=== PATIENT | male | born 1960 | race Caucasian/White ===

== ENCOUNTER 2017-03-11 16:20 | Inpatient (IN) ==
[2017-03-11 17:41] LABS: Basophils # 0.1 10*3/uL (0.0-0.2); Basophils % 1.1 % (0.0-0.8); Eosinophils # 0.1 10*3/uL (0.0-0.87); Eosinophils % 2.2 % (0.00-10.9); Hematocrit 41.2 VOL% (42.0-52.0); Hemoglobin 14.5 GM/DL (14.0-18.0); Immature Granulocytes % 0.2 %; Immature Granulocytes Absolute 0.01 #; Lymphocytes # 1.7 10*3/uL (1.4-4.0); Lymphocytes % 36.5 % (21.2-54.2); Mean Corpuscular HGB Conc 35.2 GM/DL (32-36); Mean Corpuscular Hemoglobin 31 PG (27-34); Mean Corpuscular Volume 86.7 FL (87-102); Monocytes # 0.4 10*3/uL (0.11-0.8); Monocytes % 8.6 % (1.7-12.7); Neutrophils # 2.3 10*3/uL (1.4-7.4); Neutrophils % 51.4 % (38.7-73.9); Platelet Count 189 T/CUMM (130-400); Red Blood Count 4.75 MC/CUMM (3.8-5.5); Red Cell Distribution Width 12.6 % (9.3-17.3); White Blood Count 4.6 T/CUMM (4-12)
--- NOTE | 2017-03-11 17:42 | XRay Report ---
XR chest 1V portable Indication: SOB Comparison: Chest x-ray March 13, 2014 Technique: Single frontal view of the chest. Findings: The cardiomediastinal silhouette is stable in configuration. No focal consolidation, pleural effusion, or pneumothorax. Visualized osseous and surrounding soft tissue structures appear grossly unchanged. IMPRESSION: Stable chest x-ray without acute cardiopulmonary process demonstrated. PROCEDURE INTERPRETED AT [facility] DEPARTMENT OF RADIOLOGY Final Report Signed by: Dr Shahzad Mead
[2017-03-11 17:47] LABS: Apearance,Urine CLEAR (Clear); Bilirubin,Urine Negative (Negative); Blood, Urine Negative (Negative); Glucose,Urine (UA) Negative (Negative); Ketones,Urine Negative (Negative); Mucus,Urine Occasional /LPF (Occasional); Nitrite,Urine Negative (Negative); Protein,Urine Negative; RBC,Urine <1 /HPF (0-4); Urine Color Yellow (Yellow); Urine Specific Gravity 1.024 (1.001-1.035)
[2017-03-11 18:11] LABS: Bilirubin,Total 0.4 MG/DL (0.2-1.0); Calcium 8.9 MG/DL (8.5-10.1); Osmolality,Calculated 283.1 MOS/KG (273-304); Potassium 3.7 MMOL/L (3.5-5.1); Thyroid Stimulating Hormone 3.42 uIU/ml (0.358-3.74); Total Protein 7.6 G/DL (6.4-8.3)
[2017-03-11] MEDS ORDERED: MAGNESIUM SULF RIDER 2 GM in PREMIX 1 EACH IV PRN ×2 (18:16→20:19)
[2017-03-11] MEDS ORDERED: MAGNESIUM SULF RIDER 4 GM in PREMIX 1 EACH IV PRN ×2 (18:16→20:19)
[2017-03-11] MEDS ORDERED: INFLUENZA VIRUS VACCINE 0.5 ML SYRINGE IM ONE (20:03)
[2017-03-11] MEDS ORDERED: PNEUMOCOCCAL VACCINE (23 VALENT) 0.5 ML VIAL IM ONE (20:07)
[2017-03-11] MEDS ORDERED: ZALEPLON 5 MG CAPSULE PO PRN (20:19)
[2017-03-11] MEDS ORDERED: ONDANSETRON 4 MG/2 ML VIAL IV PRN (20:19)
[2017-03-11] MEDS ORDERED: DOCUSATE SODIUM 100 MG CAPSULE PO PRN (20:19)
[2017-03-11] MEDS ORDERED: POTASSIUM CHLORIDE RIDER 10 MEQ in PREMIX 1 EACH IV PRN (20:19)
[2017-03-11] MEDS ORDERED: ACETAMINOPHEN 325 MG TABLET PO PRN (20:19)
[2017-03-11] MEDS ORDERED: GABAPENTIN 300 MG CAPSULE PO SCH (21:00)
[2017-03-11] MEDS: traZODone 50 MG TABLET PO SCH (21:50)
[2017-03-11] MEDS: LUBIPROSTONE 24 MCG CAPSULE PO SCH (21:50)
[2017-03-11] MEDS: GABAPENTIN 100 MG CAPSULE PO SCH (21:50)
[2017-03-11] MEDS: ENOXAPARIN 40 MG/0.4 ML SYRINGE SUBCUT SCH (21:50)
[2017-03-11] MEDS: POLYETHYLENE GLYCOL POWDER 17 GM PACK PO SCH (21:51)
[2017-03-12] MEDS: LEVOTHYROXINE 50 MCG TABLET PO SCH (07:03)
--- NOTE | 2017-03-12 07:22 | Cardiology History & Physical ---
Assessment and Plan - Time spent with patient Time spent with patient: Greater than 30 minutes (1) Symptomatic bradycardia Status: Acute Assessment and plan: SEE PLAN OF CARE LISTED BELOW Current Visit: Yes (2) Unintentional weight loss Status: Acute Assessment and plan: SEE PLAN OF CARE LISTED BELOW Current Visit: Yes (3) Nausea & vomiting Status: Acute Assessment and plan: SEE PLAN OF CARE LISTED BELOW Current Visit: Yes (4) Fatigue Status: Acute Assessment and plan: SEE PLAN OF CARE LISTED BELOW Current Visit: Yes History of Present Illness Chief complaint: symptomatic bradycardia History of present illness: 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 English, 56WM has no significant risk factors for coronary artery disease. Presented to the ED March 11, 2017 with presyncope, nausea and vomiting. Patient was found to be bradycardic heart rate in the 40s. Patient actually had an appointment to see Dr. Montejo March 28, 2017 for bradycardia. He is taking malachi blocking agents. Over the past several months, patient has had significant fatigue, lightheadedness and dizziness, several episodes of near syncope. This past weekend, patient began to have these near syncopal episodes as well, experiencing nausea and significant vomiting. This was transient but would continue to occur several days in a row. He has had a significant amount of weight loss over the past several months as well. Denies chest pain, heaviness, tightness. Denies shortness of breath, palpitations. Patient is normally very active but has been on able to perform his activities lately due to significant fatigue. Patient reports he had a heart catheterization approximately [address] Cherry at [facility] and received favorable results. I cannot locate this heart catheterization report. He has not followed up in cardiology clinic at [facility]. Per Dr. Montejo, will consult gastroenterology to evaluate the patient for possible scopes as there are some conditions which can create a vasovagal episode. He will first need to have his GI system evaluated. If there is no obvious source to contribute to the increased vagal tone, patient may require cardiac pacemaker. Echocardiogram this morning. I will keep patient NPO. Adding Amylase, Lipase and LFTs, carotid ultrasound. IMPRESSION/PLAN: 1. SYMPTOMATIC BRADYCARDIA - see discussion listed above. Will continue to monitor his telemetry. I see no obvious high-grade block rather sinus bradycardia. However, he is symptomatic and will most likely ultimately require pacemaker but his GI system must be evaluated first. 2. FATIGUE - may be related to his bradycardia. Further workup in progress 3. UNINTENTIONAL WEIGHT LOSS - GI to evaluate. Previously seen by Dr. Mackey with colonoscopy several years ago. Received favorable results at that time. I have requested records 4. NAUSEA AND VOMITING - GI to evaluate. Adding LFTs, amylase and lipase Home Medications Medication Instructions Recorded Confirmed Type Docusate Sodium [Colace] 100 mg PO QPM 03/11/17 03/11/17 History Gabapentin 200 mg PO BID 03/11/17 03/11/17 History HYDROcodone/ACETAMIN 7.5-325 1 tablet PO TID PRN 03/11/17 03/11/17 History [[place] 7.5-325] Levothyroxine Tab [Synthroid Tab] 50 mcg PO DAILY@0700 03/11/17 03/11/17 History Lubiprostone [Amitiza] 24 mcg PO BEDTIME 03/11/17 03/11/17 History Methocarbamol Tab [Robaxin Tab] 500 mg PO DAILY 03/11/17 03/11/17 History Montelukast Tab [Singulair Tab] 10 mg PO DAILY 03/11/17 03/11/17 History Polyethylene Glycol Powder 17 gm PO BEDTIME 03/11/17 03/11/17 History [Miralax] traZODone [Desyrel] 50 mg PO BEDTIME 03/11/17 03/11/17 History Allergies Allergy/AdvReac Type Severity Reaction Status Date / Time Penicillins Allergy Vomiting Verified 03/11/17 16:47 Review of systems: REVIEW OF SYSTEMS: - Constitutional Constitutional: Present: Fatigue, near syncope, anorexia. Absent: night sweats - EENT Eyes: Absent: blurry vision, loss of vision, diplopia Ears: Absent: decreased hearing, ear pain, ear discharge - Cardiovascular Cardiovascular: Denies: chest pain with exertion, dyspnea on exertion, edema, palpitations. Absent: chest pain with deep breath, claudication - Respiratory Respiratory: Denies: HERRERA, cough. Absent: wheezing, hemoptysis, change in phlegm color - Gastrointestinal Gastrointestinal: Denies constipation. Absent: abdominal pain, hematemesis, hematochezia, melena, change in bowel habits. Acknowledges nausea with significant vomiting recently, frequently. Early satiety - Genitourinary Genitourinary: Absent: difficulty urinating, dysuria, urinary hesitancy, flank pain - Musculoskeletal Musculoskeletal: Present: back pain Absent: joint swelling, muscle cramps, muscle weakness - Neurological Neurological: Present: normal gait without frequent falls. Dizziness present. Absent: hemiparesis - Psychiatric Psychiatric: Absent: anxiety, depression, difficulty concentrating - Endocrine Endocrine: Absent: cold intolerance, heat intolerance, polyuria, polyphagia, polydipsia - Hematologic/Lymphatic Hematologic/Lymphatic: Present: easy bruising. Absent: easy bleeding -Integumentary Integumentary: Absent: lesions, rashes, skin breakdown Medical,Surgical,& Family Hx - Medical History Cardio: No history of: Cardiac Dysrhythmia, CAD, Hypertension, [place] Endocrine: No history of: Diabetes Mellitus (NIDDM) Gastrointestinal: History of: Hemorrhoids (surgery) Musculoskeletal: History of: Back/Neck Problems (surgery) Reproductive: Reports: Reproductive Problems (testical cancer and removal) - Surgical History Cardiac Surgeries: Sugical HX of: Cardiac Catheterization (negative) - Social History Smoking Status: Never smoker Have you smoked in the last 12 months: No Frequency of Alcohol Use: None Type of Drug Use: None Marital Status: Lives With:: Spouse Functional capacity: independent ambulation Cardiology Physical Exam - Constitutional Vitals: Vital Signs Temp Pulse Resp BP Pulse Ox 98.0 F 53 L 16 109/59 99 03/12/17 04:00 03/12/17 04:00 03/12/17 05:58 03/12/17 04:00 03/12/17 04:00 Intake and Output 03/11/17 03/11/17 03/12/17 15:59 23:59 07:59 Intake Total 200 / 200 Output Total 400 / 400 Balance 200 / 200 -400 / -400 Intake: Oral 200 / 200 Output: Urine 400 / 400 Other: Voiding Method Toilet Urinal # Voids 1 Weight 72.121 kg 74.899 kg Patient Weight 03/12/17 23:59 Weight 74.899 kg Exam: General: [Appears well with no apparent distress.] [Pleasant and cooperative. ] [Appears comfortable.] HEENT: [PERRL, normocephalic, atraumatic. Mucous membranes moist. No jaundice noted. Conjunctiva moist and clear, sclerae anicteric] Neck: No JVD/HJR, no thyromegaly or lymphadenopathy noted. Soft carotid bruit bilaterally appreciated Cardiac: [Regular rate and rhythm.] [No murmur rub or gallop.] Lungs: [Clear to auscultation without accessory muscle use to assist the respiratory pattern.] Not requiring oxygen Abdomen: Soft, bowel sounds normoactive. Nontender and nondistended. No abdominal bruit or thrill noted. No masses noted. Musculoskeletal: No fluid collection. Decreased range of motion is noted. Extremities: No clubbing, cyanosis noted. [ No edema noted.] Upper extremity pulses 2+. Lower extremity pulses 2+. Capillary refill less than 3 seconds. Skin: No unusual lesions or rashes. No skin breakdown appreciated. Neuro: Awake, alert and oriented 3. Moves all extremities well without hemiparesis or paralysis. No essential tremor is appreciated. Result/EKG - Labs CBC & BMP: 03/11/17 17:30 03/11/17 17:30 Lab Results: I have reviewed the past 24 hour labs Labs: Laboratory Results - last 24 hr 03/11/17 03/11/17 03/11/17 17:24 17:30 17:30 WBC 4.6 RBC 4.75 Hgb 14.5 Hct 41.2 L MCV 86.7 L MCH 31 MCHC 35.2 RDW 12.6 Plt Count 189 MPV 10.0 Neut % (Auto) 51.4 Lymph % (Auto) 36.5 [place] % (Auto) 8.6 Eos % (Auto) 2.2 Baso % (Auto) 1.1 H Neut # (Auto) 2.3 Lymph # (Auto) 1.7 [place] # (Auto) 0.4 Eos # (Auto) 0.1 Baso # (Auto) 0.1 Immature Gran % 0.2 Nucleated RBC % 0.0 Immature Gran # 0.01 Nucleated RBCs # 0.00 Immature Plt Fraction 0.0 Sodium Potassium Chloride Carbon Dioxide Anion Gap BUN Creatinine GFR Calculation BUN/Creatinine Ratio Glucose Calculated Osmolality Calcium Total Bilirubin AST ALT Alkaline Phosphatase Total Protein Albumin Globulin Albumin/Globulin Ratio Free T4 0.82 TSH 3rd Generation Urine Color Yellow Urine Appearance Clear Urine pH 5.0 Ur Specific [place] 1.024 Urine Protein Negative Urine Glucose (UA) Negative Urine Ketones Negative Urine Blood Negative Urine Nitrate Negative Urine Bilirubin Negative Urine Urobilinogen 4.0 H Urine Leukocytes Negative Urine RBC <1 Urine Mucus Occasional Ur Culture Indicated? Not indicated 03/11/17 17:30 WBC RBC Hgb Hct MCV MCH MCHC RDW Plt Count MPV Neut % (Auto) Lymph % (Auto) [place] % (Auto) Eos % (Auto) Baso % (Auto) Neut # (Auto) Lymph # (Auto) [place] # (Auto) Eos # (Auto) Baso # (Auto) Immature Gran % Nucleated RBC % Immature Gran # Nucleated RBCs # Immature Plt Fraction Sodium 142 Potassium 3.7 Chloride 108 H Carbon Dioxide 26 Anion Gap 11.7 BUN 18 Creatinine 1.00 GFR Calculation 87 BUN/Creatinine Ratio 18.00 Glucose 83 Calculated Osmolality 283.1 Calcium 8.9 Total Bilirubin 0.40 AST 15 ALT 17 Alkaline Phosphatase 86 Total Protein 7.6 Albumin 4.0 Globulin 3.6 H Albumin/Globulin Ratio 1.1 Free T4 TSH 3rd Generation 3.420 Urine Color Urine Appearance Urine pH Ur Specific [place] Urine Protein Urine Glucose (UA) Urine Ketones Urine Blood Urine Nitrate Urine Bilirubin Urine Urobilinogen Urine Leukocytes Urine RBC Urine Mucus Ur Culture Indicated? - Diagnostic Findings Procedure: Chest x-ray: report reviewed by me - EKG EKG results: interpreted by me EKG shows: bradycardia
--- NOTE | 2017-03-12 07:27 | Order Completion Report ---
See report scanned to EMR
[2017-03-12] MEDS: GABAPENTIN 100 MG CAPSULE PO SCH ×2 (08:52→21:01)
[2017-03-12] MEDS: MONTELUKAST 10 MG TABLET PO SCH (08:52)
[2017-03-12] MEDS: METHOCARBAMOL 500 MG TABLET PO SCH (08:52)
[2017-03-12] MEDS ORDERED: PANTOPRAZOLE 40 MG TABLET PO SCH (09:00)
[2017-03-12 11:57] LABS: Albumin 3.8 G/DL (3.4-5.0); Bilirubin,Direct 0.14 MG/DL (0.0-0.20); Bilirubin,Indirect 0.4 MG/DL (0.0-1.0); Bilirubin,Total 0.5 MG/DL (0.2-1.0); Total Protein 6.9 G/DL (6.4-8.3)
--- NOTE | 2017-03-12 13:17 | Ultrasound Report ---
US carotid duplex BI Indication: Soft carotid bruits. Comparison: None. Technique: Multiple longitudinal and transverse real-time sonographic images of the bilateral carotid arterial systems are obtained with grayscale, spectral, and color Doppler analysis. Findings: Peak systolic velocities within the right CCA, proximal ICA, and distal ICA are 55, 51, and 39 cm/s respectively. Peak systolic velocities within the left CCA, proximal ICA, and distal ICA are 63, 40, and 78 cm/s respectively. ICA/CCA ratios on the right and left are 0.9 and 1.3 respectively. Antegrade flow demonstrated within the bilateral vertebral arteries. Grayscale imaging demonstrates mild bilateral atherosclerotic plaque. IMPRESSION: No convincing sonographic evidence of significant (50% or greater) narrowing of either cervical internal carotid artery. Indirect NASCET criteria utilized. PROCEDURE INTERPRETED AT [facility] DEPARTMENT OF RADIOLOGY Final Report Signed by: Dr Shahzad Mead
--- NOTE | 2017-03-12 17:08 | Order Completion Report ---
See report scanned to EMR
[2017-03-12] MEDS ORDERED: DOCUSATE SODIUM 100 MG CAPSULE PO SCH ×2 (19:00→21:00)
--- NOTE | 2017-03-12 20:43 | Gastrointestinal Consult Note ---
Assessment and Plan (1) Unintentional weight loss Status: Acute Assessment and plan: I suspect this may be due to decreased p.o. intake. The patient has had a full workup done already by Dr. Juan Mackey over [facility] including EGD and colonoscopy done in November 2015 which demonstrated chronic gastritis B ring in his esophagus that required dilation, and some chronic gastritis. He is not currently taking any medication for the gastritis. With his early satiety and chronic vomiting I suspect strongly that he may have some gastroparesis likely induced by the [place]. He may be a candidate for Reglan but we need to establish that he has poor emptying from his stomach with a gastric emptying study later in the admission. I suspect we will have to wait until morning to do this due to the fact that he has to be n.p.o. for his pacemaker placement. He is likely to get narcotics during the pacemaker placement and therefore is not a candidate for doing a gastric emptying study later in the day tomorrow. It will be best to put this off until , 03/14/17. I will write the appropriate orders. Note that this patient will follow up with Dr. Juan Mackey over [facility] after his discharge. Current Visit: Yes (2) Nausea & vomiting Status: Acute Assessment and plan: The patient's nausea and vomiting are likely due to gastroparesis, we will be checking him for this come morning after he has completed his pacemaker implantation. He may be a good candidate for Reglan but we do not want to start this on him until we establish the diagnosis. In the meantime we will treat his underlying gastritis with Protonix as he has not been getting this as an outpatient despite the demonstration of chronic gastritis on pathology. He does not have Helicobacter pylori. Current Visit: Yes (3) Chronic gastritis Status: Acute Assessment and plan: As noted above Helicobacter pylori negative. This is part of the reason why the patient is having nausea and vomiting. Current Visit: Yes (4) Personal history of colonic polyps Status: Acute Assessment and plan: This patient had tubular adenomas and serrated tubular adenoma noted during his most recent colonoscopy in November 2015. He will require repeat colonoscopy in November 2020. If Dr. Mackey retires before that time I will be happy to provide the service myself. Current Visit: Yes History of Present Illness Chief complaint: 14 pound weight loss over 1 year, nausea/vomiting/early satiety History of present illness: Mr. English is a 56 year old male who I am being consulted on for nausea/vomiting/ bradycardia. This patient's primary sanitation lead is actually Dr. Juan Mackey over [facility]. The patient has already undergone both upper and lower endoscopy done on 11/29/15 for moderately severe epigastric pain, loss of weight, nausea, and intermittent pharyngeoesophageal dysphagia. The patient was dilated to 52 [place] by single pass Vidales dilator for esophageal B ring, small hiatal hernia was noted. The stomach showing a mild chronic gastritis that was notably negative for Helicobacter pylori as well as small hyperplastic polyp. Colonoscopy was performed due to the prior history of polyps, diffuse abdominal pain, rectal bleeding, and constipation. The lower scope demonstrated a tubular adenoma and sessile serrated tubular adenoma in the transverse colon as well as what was thought to be a third polyp in the ascending that proved to be an mucosal lymphoid aggregate. He will likely need a repeat colonoscopy in 5 years. The patient also had a decreased sphincter tone noted during the procedure incidentally. The colon was characterized as long and redundant. I am not sure that any of these exams explains the patient' s chronic weight loss. He does not appear that he is on any acid blocking medication at this time despite the gastritis in the stomach. He really does not complain much the with acid reflux although this has been bothering him slightly more in the last days to weeks. He does have fairly severe early satiety and decreased weight due to poor p.o. intake. He states that he does have some scant bright red blood per rectum from time to time, he has minimal abdominal pain aside from when he vomits which results in a fairly severe epigastric pain and a feeling of being washed out. He states that he has lost approximately 14 pounds over the last year. His corroborates his story. He also has a low heart rate and is due to get a pacemaker placement tomorrow. We will have to hold off on doing a gastric emptying study until the following day so that he can remain n.p.o. for this test. Home Medications Medication Instructions Recorded Confirmed Type Docusate Sodium [Colace] 100 mg PO QPM 03/11/17 03/11/17 History Gabapentin 200 mg PO BID 03/11/17 03/11/17 History HYDROcodone/ACETAMIN 7.5-325 1 tablet PO TID PRN 03/11/17 03/11/17 History [[place] 7.5-325] Levothyroxine Tab [Synthroid Tab] 50 mcg PO DAILY@0700 03/11/17 03/11/17 History Lubiprostone [Amitiza] 24 mcg PO BEDTIME 03/11/17 03/11/17 History Methocarbamol Tab [Robaxin Tab] 500 mg PO DAILY 03/11/17 03/11/17 History Montelukast Tab [Singulair Tab] 10 mg PO DAILY 03/11/17 03/11/17 History Polyethylene Glycol Powder 17 gm PO BEDTIME 03/11/17 03/11/17 History [Miralax] traZODone [Desyrel] 50 mg PO BEDTIME 03/11/17 03/11/17 History Allergies Allergy/AdvReac Type Severity Reaction Status Date / Time Penicillins Allergy Vomiting Verified 03/11/17 16:47 Medical,Surgical,& Family Hx - Medical History Cardio: No history of: Cardiac Dysrhythmia, CAD, Hypertension, [place] Endocrine: No history of: Diabetes Mellitus (NIDDM) Gastrointestinal: History of: Hemorrhoids (surgery) Musculoskeletal: History of: Back/Neck Problems (surgery) Reproductive: Reports: Reproductive Problems (testical cancer and removal) - Surgical History Cardiac Surgeries: Sugical HX of: Cardiac Catheterization (negative) - Social History Smoking Status: Never smoker Frequency of Alcohol Use: None Type of Drug Use: None Review of systems: Constitutional: Denies fever, chills, but positive for recent intermittent nausea, and vomiting Eyes: Denies dry eyes, and scleral icterus HENT: Denies headaches Cardiovascular: Occasional chest pain but denies claudication Respiratory: Denies shortness of breath, wheezing, and difficulty breathing, denies cough Gastrointestinal: As noted in the HPI Genitourinary: Denies dysuria and hematuria Neurologic: Denies vision loss, and loss of sensation Musculoskeletal: He does have some mild joint stiffness, and muscular weakness, but no joint stiffness. Psychiatric: Denies depression and brenna symptoms Heme-Lymph: Denies easy bruising, lymph node enlargement or tenderness, night sweats, excessive bleeding Allergies-immunologic: Denies pruritus and rhinorrhea Exam - Constitutional Vitals: Period Temp Pulse Resp BP Sys/Cervantes Pulse Ox Last 24 Hr 96.8 F-98.2 F 38-53 14-18 109-141/59-86 98-100 Exam: Constitutional: Well-developed, well-nourished, alert, and in no acute distress Head and face: Head: Normocephalic atraumatic Eyes: Conjunctiva without injection, no gross scleral icterus, pupils equal and round bilaterally Ears: Intact to conversation in both ears Nose: External appearance is normal, nares patent Mouth: Oral mucous membranes moist without erythema dentition noted to be without erosion Neck: Normal appearance, no masses or tenderness, trachea midline Thyroid: Gland midline and appropriate size for age Respiratory: Normal respiratory effort, clear to auscultation without wheezes, rhonchi or rales Cardiovascular: Bradycardic but otherwise regular rhythm, normal S1, S2, the exam is without rubs, murmurs or gallops. Gastrointestinal: Nontender to palpation, normal active bowel sounds, tone normal without rigidity or guarding, no masses present, no hepatomegaly, no spleen tip felt. No rectal exam obtained. Lymphatic: Neck without adenopathy, axilla without lymphadenopathy present Musculoskeletal: Right and left lower extremities without evidence of edema Skin and subcutaneous tissue: No rashes or ulcerations noted, normal skin turgor, digits and nails without clubbing/cyanosis/deformities. Neurologic: The patient is grossly oriented to person place and time, cranial nerves show tongue movements are normal with normal tongue extrusion midline, light touch sensation is intact. Psychiatric: No hallucinations or delusions are present, does not appear depressed Results - Labs CBC & BMP: 03/11/17 17:30 03/11/17 17:30
[2017-03-12] MEDS: ENOXAPARIN 40 MG/0.4 ML SYRINGE SUBCUT SCH (21:00)
[2017-03-12] MEDS: LUBIPROSTONE 24 MCG CAPSULE PO SCH (21:01)
[2017-03-12] MEDS: traZODone 50 MG TABLET PO SCH (21:01)
[2017-03-12] MEDS: POLYETHYLENE GLYCOL POWDER 17 GM PACK PO SCH (21:01)
--- NOTE | 2017-03-12 21:04 | Order Completion Report ---
See report scanned to EMR
[2017-03-13] MEDS ORDERED: VANCOMYCIN 500 MG VIAL IRRIG ONE (06:00)
[2017-03-13] MEDS: LEVOTHYROXINE 50 MCG TABLET PO SCH (06:00)
[2017-03-13] MEDS ORDERED: VANCOMYCIN INJ 1,000 MG in SODIUM CHLORIDE 0.9% 250 ML IV ONE ×2 (06:00→23:11)
[2017-03-13 06:08] LABS: Basophils % 0.8 % (0.0-0.8); Eosinophils # 0.1 10*3/uL (0.0-0.87); Eosinophils % 2.1 % (0.00-10.9); Hematocrit 40.2 VOL% (42.0-52.0); Hemoglobin 14.2 GM/DL (14.0-18.0); Immature Granulocytes % 0.2 %; Immature Granulocytes Absolute 0.01 #; Lymphocytes # 1.9 10*3/uL (1.4-4.0); Lymphocytes % 40.6 % (21.2-54.2); Mean Corpuscular HGB Conc 35.3 GM/DL (32-36); Mean Corpuscular Hemoglobin 31 PG (27-34); Mean Corpuscular Volume 86.5 FL (87-102); Monocytes # 0.4 10*3/uL (0.11-0.8); Monocytes % 9.1 % (1.7-12.7); Neutrophils # 2.2 10*3/uL (1.4-7.4); Neutrophils % 47.2 % (38.7-73.9); Platelet Count 174 T/CUMM (130-400); Red Blood Count 4.65 MC/CUMM (3.8-5.5); Red Cell Distribution Width 12.6 % (9.3-17.3); White Blood Count 4.7 T/CUMM (4-12)
[2017-03-13 06:37] LABS: Calcium 8.8 MG/DL (8.5-10.1); Potassium 3.5 MMOL/L (3.5-5.1)
[2017-03-13 06:38] LABS: Calcium 8.7 MG/DL (8.5-10.1); Magnesium 2.1 MG/DL (1.8-2.4); Potassium 3.5 MMOL/L (3.5-5.1)
--- NOTE | 2017-03-13 07:21 | Order Completion Report ---
See report scanned to EMR
[2017-03-13] MEDS: METHOCARBAMOL 500 MG TABLET PO SCH (08:25)
[2017-03-13] MEDS: MONTELUKAST 10 MG TABLET PO SCH (08:25)
[2017-03-13] MEDS: GABAPENTIN 100 MG CAPSULE PO SCH ×2 (08:25→21:53)
[2017-03-13] MEDS: PANTOPRAZOLE 40 MG TABLET PO SCH ×2 (08:29→21:54)
[2017-03-13] MEDS ORDERED: VANCOMYCIN 500 MG VIAL ONE ×2 (09:04→09:24)
[2017-03-13] MEDS ORDERED: HEPARIN/NACL 0.9% 2 UNITS/ML 500 ML IV ONE (09:05)
[2017-03-13] MEDS ORDERED: LIDOCAINE 1% 20 ML VIAL ONE ×2 (09:05→09:52)
[2017-03-13] MEDS ORDERED: fentaNYL 100 MCG/2 ML VIAL ONE ×2 (09:32→09:53)
[2017-03-13] MEDS ORDERED: MIDAZOLAM 2 MG/2 ML VIAL ONE ×2 (09:32→09:53)
--- NOTE | 2017-03-13 09:40 | History and Physical Update ---
Sedation H&P Update - History and Physical H&P was reviewed, the patient examined and there: are no changes in the patients condition since last H&P was completed. - Dictation Physical: refer to H&P completed by admitting physician - Physical Exam Mental Status: alert and oriented Heart: regular rate and rhythm, other (bradycardia) Lung: clear to auscultation Abdomen: within normal limits Vitals: within normal limits - Sedation Plan for Sedation: moderate Patient Consent: Procedure disscussed with patient and patinet has consented., Risks and benefits were discussed with patient,including infection,, bleeding, injury to surrounding structures, seizure, temporary nerve, Patient understands and accepts potential risks/benefits and agrees to ASA Class: III Airway Assessment: Class II: Soft palate, uvula, fauces visible
[2017-03-13] MEDS ORDERED: TISSUE ADHESIVE 1 EACH APPLICATOR TOP ONE (10:16)
--- NOTE | 2017-03-13 11:17 | Cardiac Pacemaker ---
- Preoperative diagnosis Date of Procedure:: 03/13/17 Preoperative Diagnosis: Documented nonreversible symptomatic bradycardia due to , sinus node dysfunction Post-op diagnosis: same Procedure: PROCEDURE SUMMARY DDD pacemaker implant from left axillary vein access. PLAN Bed rest for 4 hours. Routine post pacemaker implant site care and activity restrictions. Do not remove pressure dressing until AM. Portable CXR, EKG stat. CXR PA/Lat, device interrogation in AM. Vancomycin 1g iv. x1. PROCEDURE Informed consent was obtained and a timeout was performed prior to the procedure. The patient was continuously monitored by ECG, pulse oxymetry and NIBP. 1g iv. Vancomycin was administered prior to the procedure for antibiotic prophylaxis. Moderate conscious sedation was initiated and maintained with iv. Versed and Fentanyl, for 75 minutes. The left pectoral area was meticulously prepared with ChloroPrep surgical scrub. Sterile draping was applied and Ioban was used to cover the operation site. The image intensifier was draped with a sterile bag and positioned over the patient's chest. After infiltration with 1% lidocaine, an incision was made in the left infraclavicular area, parallel to the deltopectoral groove. The incision was carried down to the level of the pectoral fascia. A subcutaneous pocket was then created with electrocautery and blunt dissection. Hemostasis was then achieved with electrocautery. A micropuncture needle was used to access the left axillary vein under fluoroscopic guidance. The microfilament was used to introduce the micropuncture sheath, which then was used to introduce and advance a long hydrophylic guidewire into the inferior vena cava. A 9 Fr sheath was introduced over the guidewire. The dilator was removed. The right ventricular pacemaker lead was introduced through the sheath. The sheath was then peeled away. The curved stylet was used to move the lead into the right ventricular outflow tract. The stylet was then replaced with a straight stylet and the lead was moved into a stable position in the right ventricular apex. Adequate sensing and pacing threshold was confirmed. The active fixation mechanism was then deployed. Stable signal and pacing threshold was noted, with decrease in pacing impedance. No extracardiac stimulation was noted with high output pacing. The lead was then anchored to the subcutaneous tissue with 2-0 nonabsorbable suture, using the anchoring sleeve near the point of entry to the vein. Another 9 Fr sheath was introduced over the retained guidewire. The dilator was removed. The right atrial pacemaker lead was introduced through the sheath. The sheath was then peeled away. A straight stylet was used to move the lead into the right atrium. The stylet was then replaced with a curved J stylet and the lead was moved into a stable position in the right atrial appendage. Adequate sensing and pacing threshold was confirmed. The active fixation mechanism was then deployed. Stable signal and pacing threshold was noted, with decrease in pacing impedance. No extracardiac stimulation was noted with high output pacing. The lead was then anchored to the subcutaneous tissue with 2-0 nonabsorbable suture, using the anchoring sleeve near the point of entry to the vein. The retained guidewire was removed. The pacemaker generator was attached to the leads and sealed in the prescribed manner. The wound was flushed with Vancomycin . The generator was placed into the pocket and tied to the pectoral fascia using 2-0 nonabsorbable suture. Stable lead positions were confirmed with fluoroscopy. Intermittent loss of atrial capture was noted on telemetry. Fluoroscopy showed unchanged lead position. Pacemaker interrogation showed unchanged atrial signal , but marked increase in pacing threshold, intermittent Chest forwards, 1 ms. The generator was disconnected from the atrial lead, the lead was freed up from the anchor, and moved into different spot in the right atrial appendage. Signals and pacing threshold were stable. The lead was tied down and connected back to the device. The wound was closed using a double layer of 2-0 absorbable Vicryl sutures, followed by a subcuticular running suture with 4-0 Monocryl, then Exofin. A sterile, then a pressure dressing was applied. The device was then interrogated and programmed as detailed below. The implanted system is MRI conditional. Device Type SN Location Medtronic Advisa DDD pacemaker [id number] Left infraclavicular Lead Position Type SN P/R Threshold Impedance RA RA appendage Med[employer]onic 5076-52 [id number] 2.9 mV 1.0 V @ 0.5 ms 685 Ohm RV RV apex Medtronic 5076-58 [id number] 8.1 mV 0.9 V @ 0.5 ms 1330 Ohm Bradycardia settings MVPR 60/130 Anesthesia: moderate conscious sedation Surgeon / Physician: Oliver Montejo [employer] Dispatcher: other Estimated blood loss: minimal Specimens: none sent Condition: stable Disposition: floor - Medications / Follow-up
--- NOTE | 2017-03-13 11:26 | Order Completion Report ---
See report scanned to EMR
--- NOTE | 2017-03-13 12:00 | XRay Report ---
Portable chest Date: 03/13/2017 Clinical history: Lead placement Comparison: 03/11/2017 Technique: Portable AP sitting chest Findings: The heart is normal in size with interval insertion of left subclavian atrioventricular permanent pacemaker. No pneumothorax. Minimal atelectasis at the lung bases. Stable mediastinum and osseous structures. Impression: Interval insertion of left subclavian atrioventricular permanent pacemaker with no definite pneumothorax. Atelectasis at the lung bases. PROCEDURE INTERPRETED AT [facility] DEPARTMENT OF RADIOLOGY Final Report Signed by: Dr. Kaylene Kenney
--- NOTE | 2017-03-13 19:38 | Gastrointestinal Progress Note ---
Assessment and Plan (1) Unintentional weight loss Status: Acute Assessment and plan: I suspect this may be due to decreased p.o. intake. The patient has had a full workup done already by Dr. Juan Mackey over [facility] including EGD and colonoscopy done in November 2015 which demonstrated chronic gastritis B ring in his esophagus that required dilation, and some chronic gastritis. He is not currently taking any medication for the gastritis. With his early satiety and chronic vomiting I suspect strongly that he may have some gastroparesis likely induced by the [place]. He may be a candidate for Reglan but we need to establish that he has poor emptying from his stomach with a gastric emptying study later in the admission. I suspect we will have to wait until morning to do this due to the fact that he has to be n.p.o. for his pacemaker placement. He is likely to get narcotics during the pacemaker placement and therefore is not a candidate for doing a gastric emptying study later in the day tomorrow. It will be best to put this off until , 03/14/17. I will write the appropriate orders. Note that this patient will follow up with Dr. Juan Mackey over [facility] after his discharge. 03/13/17--As noted above, awaiting gastric emptying study tomorrow, seems to be doing well with food intake today. Could potentially be discharged on proton pump in addition with or without Reglan as noted. Current Visit: Yes (2) Nausea & vomiting Status: Acute Assessment and plan: The patient's nausea and vomiting are likely due to gastroparesis, we will be checking him for this come after he has completed his pacemaker implantation. He may be a good candidate for Reglan but we do not want to start this on him until we establish the diagnosis. In the meantime we will treat his underlying gastritis with Protonix as he has not been getting this as an outpatient despite the demonstration of chronic gastritis on pathology. He does not have Helicobacter pylori. 03/13/17--As noted above. Awaiting gastric emptying study tomorrow. Current Visit: Yes (3) Chronic gastritis Status: Acute Assessment and plan: As noted above Helicobacter pylori negative. This is part of the reason why the patient is having nausea and vomiting. Current Visit: Yes (4) Personal history of colonic polyps Status: Acute Assessment and plan: This patient had tubular adenomas and serrated tubular adenoma noted during his most recent colonoscopy in November 2015. He will require repeat colonoscopy in November 2020. If Dr. Mackey retires before that time I will be happy to provide the service myself. 03/13/17--patient's next colonoscopy will be due in November 2020, again will be happy to provide this evaluation in the future. Current Visit: Yes Gastroenterology - PN: Subj Interval history: No complaints, abdomen does not hurt more than usual, awaiting gastric emptying study tomorrow. Some pain from the pacer implant. Exam (Progress Note) - Constitutional Vitals: Period Temp Pulse Resp BP Sys/Cervantes Pulse Ox Last 24 Hr 96.7 F-98.5 F 45-63 16-19 98-148/47-97 94-100 General appearance: no acute distress - Eye Eye exam: Present: EOMI - Respiratory Respiratory exam: Present: clear to auscultation bilaterally - Cardiovascular Cardiovascular exam: Present: regular rate and rhythm - GI/Abdominal GI/Abdominal exam: Present: normal bowel sounds, soft, other (Patient has an abdominal binder in place.). Absent: distended, tenderness, rebound - Extremities Exam Extremities exam: Absent: edema - Neurological Exam Neurological exam: Present: alert, oriented X3 - Psychiatric Psychiatric exam: Present: normal affect, normal mood - Skin Skin exam: Present: warm Results - Labs CBC & BMP: 03/13/17 05:24 03/13/17 05:24
[2017-03-13] MEDS: POLYETHYLENE GLYCOL POWDER 17 GM PACK PO SCH (21:54)
[2017-03-13] MEDS: traZODone 50 MG TABLET PO SCH (21:54)
[2017-03-13] MEDS: LUBIPROSTONE 24 MCG CAPSULE PO SCH (21:59)
[2017-03-13] MEDS: oxyCODONE/ACETAMINOPHEN 5-325 MG TABLET PO PRN (21:59)
[2017-03-14 05:54] LABS: Basophils % 0.6 % (0.0-0.8); Eosinophils # 0.1 10*3/uL (0.0-0.87); Eosinophils % 1.9 % (0.00-10.9); Hematocrit 37.5 VOL% (42.0-52.0); Hemoglobin 13.1 GM/DL (14.0-18.0); Immature Granulocytes % 0.2 %; Immature Granulocytes Absolute 0.01 #; Lymphocytes # 1.5 10*3/uL (1.4-4.0); Lymphocytes % 30.4 % (21.2-54.2); Mean Corpuscular HGB Conc 34.9 GM/DL (32-36); Mean Corpuscular Hemoglobin 30 PG (27-34); Mean Platelet Volume 10.4 FL (9.6-12.0); Monocytes # 0.4 10*3/uL (0.11-0.8); Monocytes % 9.1 % (1.7-12.7); Neutrophils # 2.8 10*3/uL (1.4-7.4); Neutrophils % 57.8 % (38.7-73.9); Platelet Count 153 T/CUMM (130-400); Red Blood Count 4.36 MC/CUMM (3.8-5.5); Red Cell Distribution Width 12.2 % (9.3-17.3); White Blood Count 4.8 T/CUMM (4-12)
[2017-03-14] MEDS: LEVOTHYROXINE 50 MCG TABLET PO SCH (06:15)
[2017-03-14 06:31] LABS: Calcium 8.7 MG/DL (8.5-10.1); Magnesium 2.2 MG/DL (1.8-2.4); Osmolality,Calculated 283.1 MOS/KG (273-304); Potassium 3.6 MMOL/L (3.5-5.1)
[2017-03-14] MEDS: oxyCODONE/ACETAMINOPHEN 5-325 MG TABLET PO PRN (11:11)
--- NOTE | 2017-03-14 11:30 | Nuclear Medicine Report ---
Exam: NM gastric emptying study Date: 03/14/2017 4:00 AM Comparison: None Indication: Chronic nausea vomiting Technique:[Given 500 microspheres technetium 99m sulfur colloid orally in scrambled eggs with toast. Gastric empty scans were obtained.] Findings: T1/2 equals 118.21 minutes. At 77 minutes, there is 17% gastric empty. At 119 minutes, there is 48% gastric emptying. At 177 minutes, there is 79% gastric emptying. At 235 minutes, there is 98% gastric emptying. Impression: Initial delayed gastric emptying with T1/2 equal 118.21 minutes. However at 235 minutes, there is 98% gastric emptying. PROCEDURE INTERPRETED AT [facility] DEPARTMENT OF RADIOLOGY Final Report Signed by: Dr. Kaylene Kenney
[2017-03-14 12:15] VITALS: BP 141/89
--- NOTE | 2017-03-14 12:57 | XRay Report ---
XR chest 2V Date: 03/14/2017 10:43 AM History: Status post pacemaker insertion Comparison: 03/13/2017 Technique: PA and lateral chest Findings: The heart is normal in size with stable left subclavian atrioventricular permanent pacemaker. No pneumothorax with interval resolution of the atelectasis at the lung bases. Stable mediastinum and osseous structures. Impression: Stable left subclavian atrioventricular permanent pacemaker with no pneumothorax. Resolved atelectasis. PROCEDURE INTERPRETED AT [facility] DEPARTMENT OF RADIOLOGY Final Report Signed by: Dr. Kaylene Kenney
[2017-03-14] MEDS: MONTELUKAST 10 MG TABLET PO SCH (13:08)
[2017-03-14] MEDS: METHOCARBAMOL 500 MG TABLET PO SCH (13:08)
[2017-03-14] MEDS: PANTOPRAZOLE 40 MG TABLET PO SCH (13:08)
[2017-03-14] MEDS: GABAPENTIN 100 MG CAPSULE PO SCH (13:08)
--- NOTE | 2017-03-14 14:27 | Discharge Summary ---
Keshav Gary Vanessa, RN, am scribing for, and in the presence of, Oliver Montejo MD 14 :26. Hospital Course - Hospital Course Hospital Course: Mr. English, 56-year-old WM, followed by Dr. Cherry. No significant cardiac history. He had a previous appointment scheduled to see Dr. Montejo on March 28 for evaluation of bradycardia. Admitted to [facility] on 03/11 with presyncope, and found to have a slowly progressive symptomatic bradycardia and sick sinus syndrome. Exam and labs not suggestive of cardiac etiology. Echo with preserved LVEF 60%, normal diastolic dysfunction, no significant valvular disease. After discussing risks and benefits of management options, it was elected to proceed with dual-chamber pacemaker implant. 03/13: DDD pacemaker implant, interrogation and programming. -Implanted system is MRI compatible. Successful procedure, performed under moderate conscious sedation, and patient had no complications during recovery. He was returned to telemetry unit for close observation overnight. No changes overnight. This morning, he is awake and alert, and he is without complaint. No chest pain, shortness of breath, or presyncope. Left chest wall pressure dressing removed. Pacemaker implant site with dry/intact dressing, no ecchymoses or hematoma. Device interrogation per [employer] sales representative printing paper this morning shows appropriate function. Telemetry shows atrial pacing. Chest x-ray this morning shows appropriate positioning of device and leads and no pneumothorax. Gastroenterology was consulted for chronic nausea and vomiting with recent unintentional weight loss. Gastric emptying scan earlier this morning shows minimally delayed gastric emptying. Will continue PPI twice daily per GI recommendation. He is stable for discharge home today. Discussed post pacemaker implant instructions, discharge medications, and follow-up instructions with patient and his the episode. Both voiced understanding. -discharge home today -Keep dressing dry and in place 1 week (until follow-up). -Wear left arm immobilizer 1 week (until follow-up). -Follow-up in EP clinic with Dr. Montejo in 1 week for wound/device check -Can follow-up with Dr. Cherry thereafter -Follow-up with Dr. Juan Mackey ([facility]) in 6 weeks -Protonix 40 mg PO BID. Rx given. -Continue previous home medications at discharge - Time spent with patient Time with patient DS: Greater than 30 minutes Diagnosis - Discharge Diagnosis (1) Symptomatic bradycardia Status: Resolved (2) Fatigue Status: Resolved (3) Unintentional weight loss Status: Chronic Specialty Discharge - Follow Up or Referrals Follow up with: Oliver Montejo MD [Physician] - 03/22/17 8:20 am (Follow-up in EP clinic in 1 week for wound/device check.) Juan Mackey MD [Physician] - 1 Month (Follow-up appointment with Dr. Mackey in 4-6 weeks for chronic nausea/vomiting, unintentional weight loss.) Discharge Plan - Discharge Data Disposition: Disch To Home/Self Care Condition at Discharge: Stable Discharge Diet: heart healthy, low fat, low cholesterol Activity: no lifting, other (Routine post pacemaker implant instructions) Hygiene: keep area(s) dry (Left chest wall incision), other (Routine post pacemaker implant instructions) Weight Bearing at Discharge: full weight bearing Driving: not until seen by doctor Contact your physician if you experience:: fever over 101, Difficulty voiding, Redness or swelling, Nausea/Vomiting, Shortness of breath, Bleeding, pain uncontrolled by pain medications - Discharge Medications New Pantoprazole Tab [Protonix Tab] 40 mg PO BID #80 tablet Continue Methocarbamol Tab [Robaxin Tab] 500 mg PO DAILY Lubiprostone [Amitiza] 24 mcg PO BEDTIME Montelukast Tab [Singulair Tab] 10 mg PO DAILY Levothyroxine Tab [Synthroid Tab] 50 mcg PO DAILY@0700 Polyethylene Glycol Powder [Miralax] 17 gm PO BEDTIME Docusate Sodium [Colace] 100 mg PO QPM traZODone [Desyrel] 50 mg PO BEDTIME Gabapentin 200 mg PO BID HYDROcodone/ACETAMIN 7.5-325 [Terreton 7.5-325] 1 tablet PO TID PRN PRN Reason: Pain - Follow Up or Referral Follow Up: Oliver Montejo MD [Physician] - 03/22/17 8:20 am (Follow-up in EP clinic in 1 week for wound/device check.) Juan Mackey MD [Physician] - 1 Month (Follow-up appointment with Dr. Mackey in 4-6 weeks for chronic nausea/vomiting, unintentional weight loss.) - Forms/Instructions Exam - Constitutional Vitals: Period Temp Pulse Resp BP Sys/Cervantes Pulse Ox Last 24 Hr 96.8 F-97.9 F 60-62 16-20 98-148/47-97 94-100 Exam: General: [Appears well with no apparent distress.] [Pleasant and cooperative. ] [Appears comfortable.] HEENT: [PERRL, normocephalic, atraumatic. Mucous membranes moist. No jaundice noted. Conjunctiva moist and clear, sclerae anicteric] Neck: No JVD/HJR, no thyromegaly or lymphadenopathy noted. Bilateral carotid bruit Cardiac: Regular rate and rhythm. No murmur rub or gallop. Lungs: Clear to auscultation. No wheeze, rales, rhonchi. Not requiring oxygen Abdomen: Soft, bowel sounds normoactive. Nontender and nondistended. No abdominal bruit or thrill noted. No masses noted. Musculoskeletal: No fluid collection. Decreased range of motion is noted. Extremities: No clubbing, cyanosis noted. No edema noted. Upper extremity pulses 2+. Lower extremity pulses 2+. Capillary refill less than 3 seconds. Decreased range of motion of LUE due to recent pacer implant. Skin: No unusual lesions or rashes. No skin breakdown appreciated. Neuro: Awake, alert and oriented 3. Moves all extremities well without hemiparesis or paralysis. Grossly intact. No tremor. Chest: Left chest wall implant incision intact, dry/intact dressing, no ecchymoses or hematoma. Discharge Results Procedures and tests throughout hospitalization: Pending Orders 03/14/17 04:00 NM gastric emptying study IN AM XR chest 2V IN AM 03/14/17 10:43 XR chest 2V Routine Labs on day of discharge: Labs from last 24 hours 03/14/17 03/14/17 04:44 04:44 WBC 4.8 RBC 4.36 Hgb 13.1 L Hct 37.5 L MCV 86.0 L MCH 30 MCHC 34.9 RDW 12.2 Plt Count 153 MPV 10.4 Neut % (Auto) 57.8 Lymph % (Auto) 30.4 Fannin % (Auto) 9.1 Eos % (Auto) 1.9 Baso % (Auto) 0.6 Neut # (Auto) 2.8 Lymph # (Auto) 1.5 Fannin # (Auto) 0.4 Eos # (Auto) 0.1 Baso # (Auto) 0.0 Immature Gran % 0.2 Nucleated RBC % 0.0 Immature Gran # 0.01 Nucleated RBCs # 0.00 Immature Plt Fraction 0.0 Sodium 142 Potassium 3.6 Chloride 106 Carbon Dioxide 27 Anion Gap 12.6 BUN 14 Creatinine 0.80 GFR Calculation 104 BUN/Creatinine Ratio 17.00 Glucose 91 Calculated Osmolality 283.1 Calcium 8.7 Magnesium 2.2 - Imaging and Cardiology Cardiology Procedure: image reviewed by me, report reviewed by me Procedure: Chest x-ray: image reviewed by me, report reviewed by me DS: Provider Consults: 03/11/17 20:03 Consult to Dietitian [CONS] Routine Reason for Dietitian: Dietary Consult Consult to Pastoral Services [CONS] Routine Comment: Pastoral Screen: Request Internal Medicine Doctor Visit 03/12/17 07:52 Consult to Physician [CONS] Routine Comment: NAUSEA/VOMITING/WEIGHT LOSS/BRADYCARDIA Consulting Provider: Crow Vergara When should Consulting Provider be notified: Now Person Notified: [place] Date Notified: 03/12/17 Time Notified: 09:20 Discharging clinician: Oliver Montejo MD Expected date of discharge: 03/14/17 Gustabo Gary Attila, MD, personally performed the services described in this documentation, ascribed by Tracee Parr RN in my presence, and it is both accurate and complete [id number] .
[2017-03-14] MEDS ORDERED: INFLUENZA VIRUS VACCINE 0.5 ML SYRINGE IM ONE (15:37)
[2017-03-14] MEDS ORDERED: PNEUMOCOCCAL VACCINE (13 VALENT) 0.5 ML SYRINGE IM ONE (15:38)
== END 2017-03-14 15:55 | disposition home or self-care (01) | DRG 244 ==
LOC: N.ED 16:20 → N.EDINP 16:20 → N.TELEN 19:24
PROVIDERS: ADMIT Internal Medicine Clinical Cardiac Electrophysiology; ATTEND Internal Medicine Clinical Cardiac Electrophysiology